=== PATIENT | male | born 1960 | race Caucasian/White ===

== ENCOUNTER 2024-12-14 00:57 | Day surgery (SDC) | payer OTHER, SELFPAY ==
[2024-12-02 08:34] VITALS: BMI 25.9
--- NOTE | 2024-12-13 14:15 | P.PNAN_ITS ---
Anes - Initial Pre Proc Eval Procedure: Operation Date: 12/14/24 09:00 Proposed Procedures p Colonoscopy - Claudio Grier DO Date/Time: 12/13/24 14:15 Surgeon: Claudio Grier DO Pre Op Diagnosis: + FIT Patient Data Age: 64 Gender: M Height: 1.78 m Weight: 82.2 kg Allergies Allergy/AdvReac Type Severity Reaction Status Date / Time No Known Allergies Allergy Verified 12/14/24 07:42 Home Medications ?Medication ?Instructions ?Recorded ?Confirmed ?Type acetaminophen 650 mg 650 mg PO Q12H PRN pain 12/02/24 12/02/24 History tablet,extended release (8 Hour Pain Reliever) albuterol 90 mcg/actuation aerosol 90 mcg inhalation QID PRN asthma 12/02/24 12/02/24 History inhaler atorvastatin 20 mg tablet (Lipitor) 20 mg PO DAILY 12/02/24 12/14/24 History hydrochlorothiazide 25 mg tablet 25 mg PO DAILY 12/02/24 12/14/24 History losartan 25 mg tablet (Cozaar) 25 mg PO DAILY 12/02/24 12/14/24 History mometasone 220 mcg/actuation(60 1 inh inhalation BID 12/02/24 12/14/24 History doses) breath activated powder inhaler omeprazole 40 mg capsule,delayed 40 mg PO DAILY 12/02/24 12/14/24 History release tiotropium bromide 18 mcg capsule 1 cap inhalation DAILY 12/02/24 12/14/24 History with inhalation device (Spiriva with HandiHaler) Patient hx anesthesia problems: none Family hx anesthesia problems: none Results Review: All pre-operative results and documents have been reviewed as part of the pre- operative evaluation. [facility] Past Medical History Medical History (Updated 12/13/24 @ 14:15 by Markel Corley DO) Hiatal hernia GERD (gastroesophageal reflux disease) COPD (chronic obstructive pulmonary disease) Asthma Hyperlipidemia Hypertension Social History Social History Living arrangements: incarcerated Anes - Eval Final PreProcedure Day of Procedure 12/13/24 14:15 Patient weight: overweight Heart: regular rate and rhythm Lungs: clear to auscultation Airway: Mallampati scale class II Neurological: alert and oriented Last oral intake: >/= 8 hours ASA classification: III Emergent: no Anesthetic plan: proceed Anesthesia type and monitoring: general GIVS and standard monitoring Results Review: All pre-operative results and documents have been reviewed as part of the pre- operative evaluation. Informed Consent: The patient's anesthetic plan and its attendant risks and benefits were discussed with the patient/family/POA. Questions were solicited and answers provided to the satisfaction of the patient/family/POA.
[2024-12-14 07:46] VITALS: BP 134/82; PULSE 81; RESP 16; TEMP 36.2; O2SAT 99
--- NOTE | 2024-12-14 09:01 | P.HP_ITS ---
H&P: HPI History of Present Illness Date/Time: 12/14/24 09:01 Chief Complaint: positive fit test Narrative: this is a 64-year-old man who presents for colonoscopy. He recently had a positive fit test at [facility]. He denies any hematochezia or melena. He did have a colonoscopy about 10 years ago. He denies family history of colon cancer. Review of Systems Review of Systems: All systems reviewed & are unremarkable except as noted in HPI and below Constitutional: Constitutional: Denies chills, Denies fever(s), Denies headache(s) and Denies weight loss Eyes: Eyes: Denies change in vision ENT: Denies dizziness, Denies headache(s), Denies neck mass and Denies throat swelling Cardiovascular: Cardiovascular: Denies chest pain, Denies lightheadedness and Denies dyspnea Respiratory: Respiratory: Denies cough, Denies dyspnea and Denies wheezing Gastrointestinal: Gastrointestinal: Denies abdominal pain, Denies change in bowel habits, Denies nausea and Denies vomiting Genitourinary: Genitourinary: Denies hematuria and Denies dysuria Musculoskeletal: Musculoskeletal: Reports as per HPI Integumentary/Breasts: Skin/Breast: Reports as per HPI Neurologic: Denies dizziness and Denies headache(s) Allergic/Immunologic: Allergic/Immunologic: Denies throat swelling and Denies wheezing [facility] Past Medical History Medical History (Updated 12/14/24 @ 09:02 by Claudio Grier DO) Hiatal hernia GERD (gastroesophageal reflux disease) COPD (chronic obstructive pulmonary disease) Asthma Hyperlipidemia Hypertension Social History Social History Living arrangements: incarcerated Meds Home Medications and Allergies Home Medications ?Medication ?Instructions ?Recorded ?Confirmed ?Type acetaminophen 650 mg 650 mg PO Q12H PRN pain 12/02/24 12/02/24 History tablet,extended release (8 Hour Pain Reliever) albuterol 90 mcg/actuation aerosol 90 mcg inhalation QID PRN asthma 12/02/24 12/02/24 History inhaler atorvastatin 20 mg tablet (Lipitor) 20 mg PO DAILY 12/02/24 12/14/24 History hydrochlorothiazide 25 mg tablet 25 mg PO DAILY 12/02/24 12/14/24 History losartan 25 mg tablet (Cozaar) 25 mg PO DAILY 12/02/24 12/14/24 History mometasone 220 mcg/actuation(60 1 inh inhalation BID 12/02/24 12/14/24 History doses) breath activated powder inhaler omeprazole 40 mg capsule,delayed 40 mg PO DAILY 12/02/24 12/14/24 History release tiotropium bromide 18 mcg capsule 1 cap inhalation DAILY 12/02/24 12/14/24 History with inhalation device (Spiriva with HandiHaler) Allergies Allergy/AdvReac Type Severity Reaction Status Date / Time No Known Allergies Allergy Verified 12/14/24 07:42 Vital Signs Vital Signs - 24 hr 12/14/24 07:46 Temperature 97.2 F L Pulse Rate 81 Respiratory Rate 16 Blood Pressure 134/82 Pulse Oximetry 99 Oxygen Delivery Room Air Exam Const: General: no acute distress and alert Orientation/consciousness: patient oriented x3 HENMT: Head: normocephalic and atraumatic Ears: hearing grossly normal bilaterally Face/Nose/Sinus: Normal nares present Mouth: Yes Normal oral and palatal mucosa present Eyes: Periorbital: periorbital findings normal Sclera: sclerae normal EOM: EOMs intact bilaterally Neck: Neck: normal visual inspection, no lymphadenopathy and trachea midline Chest: Chest palpation & inspection: normal inspection of the chest Resp: Effort & Inspection: normal respiratory effort Auscultation: clear to auscultation bilaterally Cardio: Jugular venous distension: no JVD Rate: regular rate Rhythm: regular rhythm Heart sounds: S1 normal heart sound present and S2 normal heart sound present Peripheral pulses: Peripheral pulses 2+ throughout GI: Inspection: normal to inspection GI Palp: Yes Soft to palpation, No Tenderness to palpation present (GI), No Guarding due to palpation present (GI) and No Rebound tenderness present Percussion: Yes normal to percussion Auscultation: normal bowel sounds : General: Yes no CVA tenderness Back/Spine/Pelvis: Back: no CVA tenderness Neuro: General: patient oriented x3, no focal motor deficits and CN's II-XI intact bilaterally Cognition (Neuro): normal cognition Speech: normal speech Motor exam (neuro): 5/5 motor strength present throughout Extrem: General: capillary refill normal and no clubbing, cyanosis or edema Assessment and Plan Assessment and plan (1) Positive FIT (fecal immunochemical test): Code(s): R19.5 - Other fecal abnormalities Status: Acute Assessment and Plan: I have recommended colonoscopy. I have discussed the procedure, risks, benefits, and alternatives. Questions were answered. Patient is agreeable to proceed.
[2024-12-14] MEDS: LACTATED RINGERS 1,000 ML 150 ML IV CONT (09:25)
[2024-12-14 09:48] VITALS: BP 117/88; PULSE 73; RESP 21; O2SAT 100
[2024-12-14 09:58] VITALS: BP 120/76; PULSE 67; RESP 18; O2SAT 100
[2024-12-14 10:08] VITALS: BP 119/77; PULSE 60; RESP 19; O2SAT 100
== END 2024-12-14 10:10 | disposition home or self-care (01) ==
PROVIDERS: Visit Provider Surgery
PROC: 0DJD8ZZ Inspection of Lower Intestinal Tract, Via Natural or Artificial Opening Endoscopic (ICD-10-PCS; CPT 45378; principal; 2024-12-14 09:00)
DX: R19.5 Other fecal abnormalities (principal); E78.5 Hyperlipidemia, unspecified; I10 Essential (primary) hypertension; K21.9 Gastro-esophageal reflux disease without esophagitis; J44.9 Chronic obstructive pulmonary disease, unspecified; Z79.51 Long term (current) use of inhaled steroids
CPT/HCPCS: 45378; J2704; J7120